=== PATIENT | female | born 1995 | race Caucasian/White ===

== ENCOUNTER 2023-05-21 21:40 | Emergency (ER) | payer MEDICAID, OTHER ==
[~2023-05-21] VITALS: Ht 162.6 cm; Wt 82.0 kg
[~2023-05-21 21:40] MED LIST: IBUP-1653
[2023-05-21 22:35] VITALS: BP 107/49; O2SAT 98
[2023-05-22 02:54] LABS: BASOPHILS % 0.4 % (0.0-2.0); EOSINOPHILS % 1.3 % (0.0-5.0); HEMATOCRIT. 34.9 % (36.0-48.0); HEMOGLOBIN. 11.5 g/dL (12.0-16.0); LYMPHOCYTES % 20.9 % (20.0-50.0); MEAN CORPUSCULAR HEMOGLOBIN 25.8 pg (28.0-32.0); MEAN CORPUSCULAR VOLUME 78.5 fL (81.0-99.0); MEAN PLATELET VOLUME 8.9 fl (7.4-10.4); MONOCYTES % 5.2 % (2.0-8.0); NEUTROPHILS % 72.2 % (40.0-76.0); PLATELET 242 x1000/uL (130-400); RED BLOOD CELL COUNT 4.45 mill/uL (4.2-5.4); RED CELL DISTRIBUTION WIDTH 14.1 % (11.6-14.6)
[2023-05-22 03:02] LABS: CHLORIDE 106 mEq/L (98-107)
[2023-05-22] MEDS ORDERED: TOPUD MT (03:56)
[2023-05-22 04:10] LABS: CLARITY URINE CLEAR (CLEAR); COLOR URINE YELLOW (YELLOW); KETONES URINE 3+ (NEGATIVE); LEUKOCYTE ESTERASE URINE NEGATIVE (NEGATIVE); NITRITE URINE NEGATIVE (NEGATIVE); OCCULT BLOOD URINE NEGATIVE (NEGATIVE); PROTEIN URINE NEGATIVE (NEGATIVE); SPECIFIC GRAVITY URINE 1.015 (1.005-1.030)
[2023-05-22 04:14] VITALS: PULSE 82; RESP 18; TEMP 98.8
== END 2023-05-22 04:15 | disposition home or self-care (01) ==
LOC: ER 21:40
DX: O99.612 Diseases of the digestive system complicating pregnancy, second trimester (principal); K80.20 Calculus of gallbladder without cholecystitis without obstruction; Z3A.18 18 weeks gestation of pregnancy
CPT/HCPCS: 36415; 76705; 76815; 80053; 81003; 81025; 85025; 99284